=== PATIENT | male | born 1995 | race African-American/Black ===

== ENCOUNTER 2019-06-30 20:29 | Emergency (ER) | payer BC ==
[~2019-06-30] VITALS: Ht 182.9 cm; Wt 83.9 kg
[2019-06-30 20:35] VITALS: BP 139/81
== END 2019-06-30 21:03 | disposition home or self-care (01) ==
LOC: ER 20:36
DX: L73.9 Follicular disorder, unspecified (principal); Z98.890 Other specified postprocedural states; Z91.018 Allergy to other foods

== ENCOUNTER 2023-03-05 11:39 | Emergency (ER) | payer BC ==
[~2023-03-05] VITALS: Ht 185.4 cm; Wt 79.4 kg
[2023-03-05 11:48] VITALS: BP 132/68; TEMP 98.6; O2SAT 100
[2023-03-05] MEDS ORDERED: CIPR7.5D9 LEFT EAR (12:24)
== END 2023-03-05 12:28 | disposition home or self-care (01) ==
LOC: ER 11:46
DX: H60.502 Unspecified acute noninfective otitis externa, left ear (principal); Z88.8 Allergy status to other drugs, medicaments and biological substances; Z91.013 Allergy to seafood